=== PATIENT | female | born 1985 | race Caucasian/White ===

== ENCOUNTER 2019-02-07 01:35 | Emergency (ER) | payer MEDICAID, OTHER ==
[~2019-02-07] VITALS: Ht 160 cm; Wt 63.5 kg
[2019-02-07 01:39] VITALS: BP 126/85
--- NOTE | 2019-02-07 01:42 | NUR ---
TO LOBBY A/W BED AMBULATORY
--- NOTE | 2019-02-07 03:27 | NUR ---
PATIENT LEFT WITHOUT BEING SEEN BY DR. MANTILLA. NO FURTHER CARE PROVIDED FOR PATIENT.
== END 2019-02-07 03:27 | disposition left against medical advice (07) ==
LOC: MED 01:35
DX: R10.84 Generalized abdominal pain (principal); R11.2 Nausea with vomiting, unspecified; Z53.21 Procedure and treatment not carried out due to patient leaving prior to being seen by health care provider

== ENCOUNTER 2019-02-10 16:38 | Emergency (ER) | payer OTHER ==
[~2019-02-10] VITALS: Ht 160 cm; Wt 63.5 kg
[2019-02-10 17:07] VITALS: BP 122/70
--- NOTE | 2019-02-10 17:11 | NUR ---
WAIT IN LOBBY
[2019-02-10] MEDS ORDERED: SODIUM CHLORIDE FLUSH 10 ML SYR IVF STA (17:53)
[2019-02-10 18:43] LABS: APPEARANCE,URINE CLEAR (CLEAR); BILIRUBIN,URINE NEGATIVE (NEGATIVE); BLOOD, URINE NEGATIVE (NEGATIVE); COLOR,URINE YELLOW (YELLOW); LEUKOCYTE ESTERASE ,URINE NEGATIVE (NEGATIVE); NITRITE, URINE NEGATIVE (NEGATIVE); UGLUCOSE NEGATIVE (NEGATIVE)
[2019-02-10 18:43] LABS: BASOPHILS % (AUTO) 0.5 % (0.0-2.0); HEMATOCRIT 38.1 % (36-48); HEMOGLOBIN 12.6 g/dL (12.0-16.0); LYMPHOCYTES # (AUTO) 0.6 K/uL (2.5-16.5); LYMPHOCYTES % (AUTO) 13.5 % (20.5-51.1); MEAN CORPUSCULAR HEMOGLOBIN 27 pg (27-31); MEAN CORPUSCULAR HGB CONC 33 g/dL (33-37); MEAN CORPUSCULAR VOLUME 80.2 fL (80-94); MONOCYTES # (AUTO) 0.4 K/uL (0.8-1.0); MONOCYTES % (AUTO) 10.5 % (1.7-9.3); NEUTROPHILS # (AUTO) 3.1 K/uL (1.8-7.7); NEUTROPHILS % (AUTO) 75.5 % (42.2-75.2); PLATELET COUNT (AUTO) 204 K/uL (140-450); RED BLOOD CELL COUNT(AUTO) 4.75 MIL/uL (4.20-5.40); RED CELL DISTRIBUTION WIDTH 13.3 % (11.6-13.7); WHITE BLOOD COUNT (AUTO) 4.1 K/uL (4.8-10.8)
[2019-02-10 19:10] LABS: ANION GAP 12.8 (8-16); CARBON DIOXIDE 27.6 mmol/L (21-32); POTASSIUM 4.4 mmol/L (3.5-5.1)
[2019-02-10 19:11] LABS: ALBUMIN 3.7 g/dL (3.4-5.0); CREATININE 0.8 mg/dL (0.6-1.3); TOTAL BILIRUBIN 0.6 mg/dL (0.0-1.0)
--- NOTE | 2019-02-10 20:10 | NUR ---
PATIENT AMBULATED TO ER BED 6
--- NOTE | 2019-02-10 20:31 | NUR ---
Dr. Amaya examining patient.
--- NOTE | 2019-02-10 20:42 | NUR ---
33 Y/O FEMALE C/O NAUSEA, GENERALIZED ABDOMINAL PAIN RADIATING TO LOWER BACK, HEADACHE X 3 DAYS 02/06/10. A/OX 4. PATIENT FOLLOWS COMMANDS. 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 BOWEL SOUNDS HEARD ON ALL FOUR QUADRANTS. DENIES VOMTING/DIARRHEA BUT HAS NAUSEA. PATIENT STATES THAT PAIN RADIATES TO THE LOWER BACK (PAIN IS 9/10) AND HAS A MIGRAINE. PERRLA+3. ER MD MADE AWARE OF STATUS. SIDE RAILSX2. PLACED ON MONITOR. LMP 09/03/18, BREAST FEEDING. MED HX: GASTRITIS, GASTRIC BYPASS NKDA
[2019-02-10] MEDS ORDERED: ONDANSETRON 4 MG ODT PO ONE (20:45)
[2019-02-10] MEDS ORDERED: DICYCLOMINE HCL LIQUID 10 MG/5 ML UDC PO ONE (21:05)
[2019-02-10] MEDS ORDERED: LIDOCAINE VISCOUS 2% 20 ML UDC PO ONE (21:05)
[2019-02-10] MEDS ORDERED: ALUMINUM HYD/MAG/SIMETHICONE 30 ML UDC PO ONE (21:05)
[2019-02-10] MEDS ORDERED: NACL 0.9% 1,000 ML IV ONE (21:50)
[2019-02-10] MEDS ORDERED: KETOROLAC 30 MG/ML VIAL IVP ONE (23:35)
--- NOTE | 2019-02-10 23:50 | NUR ---
PT AWAKE, LAYING ON BED. PT VSS. C/O OF PAIN 10/09. ERMD AWARE. WILL CONTINUE TO MONITOR.
[2019-02-11 00:06] VITALS: BP 122/70
--- NOTE | 2019-02-11 00:06 | NUR ---
PT DISCHARGED WITH PAPERWORK. RX PROTONIX. EDUCATED PT REGARDING MEDICATION AND S/E. EDUCATED PT REGARDING D/C DIAGNOSIS AND INSTRUTIONS. PT VERBALIZED UNDERSTANDING OF TEACHING. TOLD PT TO FOLLOW UP WITH PCP AND WHEN TO RETURN TO ED. PT VSS. ERMD AWARE. WILL CONTINUE TO MONITOR.
== END 2019-02-11 00:06 | disposition home or self-care (01) ==
LOC: MED 16:38
DX: K29.70 Gastritis, unspecified, without bleeding (principal); G43.909 Migraine, unspecified, not intractable, without status migrainosus; Z98.84 Bariatric surgery status
CPT/HCPCS: 36415; 74022; 80053; 81003; 81025; 83690; 85025; 96361; 96374; 99284; J1885; J7030; Q0162